=== PATIENT | male | born 1940 ===

== ENCOUNTER 2016-07-26 16:54 | Outpatient (CLI) | payer MEDICARE, OTHER ==
[2016-07-26 19:19] LABS: Prothrombin Time 21.8 SEC (12.0-14.7)
== END 2016-07-26 16:55 | disposition home or self-care (01) ==
LOC: NAV LABSP 16:54
PROVIDERS: ATTEND Family Medicine
DX: I48.0 Paroxysmal atrial fibrillation (principal)
CPT/HCPCS: 85610

== ENCOUNTER 2016-08-09 15:25 | Outpatient (CLI) | payer MEDICARE, OTHER | END 2016-08-09 15:26 | disposition home or self-care (01) | LOC: NAV LABSP 15:25 | PROVIDERS: ATTEND Family Medicine | DX: I48.0 Paroxysmal atrial fibrillation (principal) | CPT/HCPCS: 85610 ==